=== PATIENT | female | born 1935 | race Caucasian/White ===

== ENCOUNTER → 2023-05-11 13:24 | Outpatient (REF) | payer MEDICARE, OTHER, SELFPAY ==
[2023-05-11 15:37] LABS: ALT (SGPT) 21 U/L (0-35); AST (SGOT) 37 U/L (14-36); Alkaline Phosphatase 42 U/L (38-126); Blood Urea Nitrogen 20 mg/dl (7-17); Calcium 9.1 mg/dl (8.4-10.2); Carbon Dioxide 27 mmol/L (22-30); Chloride 106 mmol/L (98-107); Glucose 150 mg/dl (70-99); Potassium 5.1 mmol/L (3.5-5.1); Sodium 138 mmol/L (135-145); Total Bilirubin 0.6 mg/dl (0.2-1.3); Total Protein 6.9 g/dl (6.3-8.2); eGFR > 60.00
[2023-05-11 16:06] LABS: Vitamin D, 25-OH*** 98.4 ng/mL (30-80)
== END ==
LOC: HWRAD 13:24
PROVIDERS: ATTENDING PHYSICIAN Internal Medicine Rheumatology; FAMILY PHYSICIAN Internal Medicine Geriatric Medicine
DX: M81.0 Age-related osteoporosis without current pathological fracture (principal); E55.9 Vitamin D deficiency, unspecified
CPT/HCPCS: 36415; 77080; 80053; 82306

== ENCOUNTER → 2023-06-13 09:37 | Outpatient (REF) | payer MEDICARE, OTHER, SELFPAY ==
[2023-06-13 12:00] LABS: % Basophils 1.1 % (0-2); % Immature Granulocytes 0.4 % (0-0.5); % Lymphocytes 21.4 % (20.5-51.1); % Monocytes 7.6 % (1.7-9.3); % Neutrophils 65.5 % (42.2-75.2); Absolute Basophils 0.1 10^3/uL (0-0.2); Absolute Eosinophils 0.3 10^3/uL (0-0.7); Absolute Lymphocytes 1.8 10^3/uL (1.2-3.4); Absolute Monocytes 0.6 10^3/uL (0.1-0.6); Absolute Neutrophils 5.4 10^3/uL (1.4-6.5); Hematocrit 39.4 % (37.0-47.0); Hemoglobin 13.4 g/dL (12.0-16.0); Mean Corpuscular Hgb 32.8 pg (27.0-31.0); Mean Corpuscular Volume 96.3 fL (81.0-99.0); Mean Platelet Volume 9.9 fL (7.4-10.4); Nucleated Red Blood Cells % 0 %; Platelet Count 268 10^3/uL (130-400); Red Blood Cell Count 4.09 10^6/uL (4.20-5.40); Red Cell Dist. Width 12.8 % (11.5-14.5); White Blood Cell Count 8.3 10^3/uL (4.8-10.8)
[2023-06-13 12:16] LABS: ALT (SGPT) 22 U/L (0-35); AST (SGOT) 36 U/L (14-36); Albumin 4.3 g/dl (3.5-5.0); Alkaline Phosphatase 34 U/L (38-126); Blood Urea Nitrogen 23 mg/dl (7-17); Carbon Dioxide 29 mmol/L (22-30); Chloride 103 mmol/L (98-107); Glucose 94 mg/dl (70-99); HDL Cholesterol 56 mg/dl; Iron 146 ug/dl (37-170); LDL Cholesterol, Calculated 57 mg/dl; Potassium 5.5 mmol/L (3.5-5.1); Sodium 140 mmol/L (135-145); Total Bilirubin 0.7 mg/dl (0.2-1.3); Total Cholesterol 135 mg/dl (50-199); Total Protein 7.2 g/dl (6.3-8.2); Triglyceride 111 mg/dl (10-149); Very Low Density Lipoprotein 22 mg/dl (0-30); eGFR > 60.00
[2023-06-13 12:26] LABS: Percent Saturation 41 % (20-50); Total Iron Binding Capacity 353 ug/dl (265-497)
[2023-06-13 12:28] LABS: Free T4 1.26 ng/dl (0.78-2.19); Vitamin D, 25-OH*** 96.2 ng/mL (30-80)
[2023-06-13 12:42] LABS: TSH 3.41 uIU/ml (0.47-4.68)
[2023-06-13 12:46] LABS: Ferritin 57.2 ng/ml (11.1-264.0)
== END ==
LOC: HWLAB 09:37
PROVIDERS: ATTENDING PHYSICIAN Internal Medicine Geriatric Medicine
DX: Z09 Encounter for follow-up examination after completed treatment for conditions other than malignant neoplasm (principal); R06.00 Dyspnea, unspecified; J44.9 Chronic obstructive pulmonary disease, unspecified; E03.8 Other specified hypothyroidism; Z87.891 Personal history of nicotine dependence; E55.9 Vitamin D deficiency, unspecified; M81.0 Age-related osteoporosis without current pathological fracture; E61.1 Iron deficiency; J30.2 Other seasonal allergic rhinitis; Z91.81 History of falling; E78.2 Mixed hyperlipidemia; Z13.89 Encounter for screening for other disorder; M25.552 Pain in left hip; E87.5 Hyperkalemia; F90.9 Attention-deficit hyperactivity disorder, unspecified type; G44.211 Episodic tension-type headache, intractable
CPT/HCPCS: 36415; 80053; 80061; 82306; 82728; 83540; 83550; 84439; 84443; 85025

== ENCOUNTER → 2023-07-10 10:43 | Outpatient (REF) | payer MEDICARE, OTHER, SELFPAY ==
[2023-07-10 13:56] LABS: Blood Urea Nitrogen 19 mg/dl (7-17); Calcium 9.5 mg/dl (8.4-10.2); Carbon Dioxide 26 mmol/L (22-30); Chloride 105 mmol/L (98-107); Glucose 89 mg/dl (70-99); Potassium 5.9 mmol/L (3.5-5.1); Sodium 136 mmol/L (135-145); eGFR > 60.00
[2023-07-10 14:30] LABS: Vitamin D, 25-OH*** 66.4 ng/mL (30-80)
== END ==
LOC: HWLAB 10:43
PROVIDERS: ATTENDING PHYSICIAN Internal Medicine Geriatric Medicine
DX: E67.3 Hypervitaminosis D (principal)
CPT/HCPCS: 36415; 80048; 82306

== ENCOUNTER → 2023-12-18 10:33 | Outpatient (REF) | payer MEDICARE, OTHER, SELFPAY ==
[2023-12-18 12:23] LABS: Urine Albumin Trace (Neg - Trace); Urine Bilirubin Negative (Negative); Urine Character Slightly Cloudy (Clear); Urine Color Yellow; Urine Glucose Negative (Negative); Urine Ketone Negative (Negative); Urine Leukocyte 2+ (Negative); Urine Nitrite Negative (Negative); Urine Occult Blood 1+ (Negative); Urine Urobilinogen Negative (Neg - 1+)
[2023-12-18 12:25] LABS: % Eosinophils 3.1 % (0-6); % Immature Granulocytes 0.4 % (0-0.5); % Lymphocytes 21.2 % (20.5-51.1); % Monocytes 6.4 % (1.7-9.3); % Neutrophils 67.9 % (42.2-75.2); Absolute Basophils 0.1 10^3/uL (0-0.2); Absolute Eosinophils 0.3 10^3/uL (0-0.7); Absolute Lymphocytes 2.3 10^3/uL (1.2-3.4); Absolute Monocytes 0.7 10^3/uL (0.1-0.6); Absolute Neutrophils 7.3 10^3/uL (1.4-6.5); Hematocrit 42.4 % (37.0-47.0); Hemoglobin 14.2 g/dL (12.0-16.0); Mean Corp Hgb Conc. 33.5 g/dL (33.0-37.0); Mean Corpuscular Hgb 32.9 pg (27.0-31.0); Mean Corpuscular Volume 98.4 fL (81.0-99.0); Mean Platelet Volume 9.6 fL (7.4-10.4); Nucleated Red Blood Cells % 0 %; Platelet Count 294 10^3/uL (130-400); Red Blood Cell Count 4.31 10^6/uL (4.20-5.40); Red Cell Dist. Width 12.6 % (11.5-14.5); White Blood Cell Count 10.8 10^3/uL (4.8-10.8)
[2023-12-18 12:41] LABS: ALT (SGPT) 21 U/L (0-35); AST (SGOT) 39 U/L (14-36); Albumin 4.5 g/dl (3.5-5.0); Alkaline Phosphatase 44 U/L (38-126); Blood Urea Nitrogen 21 mg/dl (7-17); Calcium 10.1 mg/dl (8.4-10.2); Carbon Dioxide 25 mmol/L (22-30); Chloride 102 mmol/L (98-107); Glucose 98 mg/dl (70-99); HDL Cholesterol 64 mg/dl; LDL Cholesterol, Calculated 74 mg/dl; Potassium 5.6 mmol/L (3.5-5.1); Sodium 139 mmol/L (135-145); Total Bilirubin 0.8 mg/dl (0.2-1.3); Total Cholesterol 162 mg/dl (50-199); Total Protein 7.2 g/dl (6.3-8.2); Triglyceride 123 mg/dl (10-149); Urine Bacteria Moderate (Negative); Urine White Cell 50-60 /HPF (0-5); Very Low Density Lipoprotein 24 mg/dl (0-30); eGFR > 60.00
[2023-12-18 12:52] LABS: Free T4 1.28 ng/dl (0.78-2.19); Vitamin D, 25-OH*** 68.1 ng/mL (30-80)
[2023-12-18 13:06] LABS: TSH 0.26 uIU/ml (0.47-4.68)
== END ==
LOC: HWLAB 10:33
PROVIDERS: ATTENDING PHYSICIAN Internal Medicine Geriatric Medicine
DX: Z79.899 Other long term (current) drug therapy (principal); R82.90 Unspecified abnormal findings in urine; R79.9 Abnormal finding of blood chemistry, unspecified; E87.5 Hyperkalemia; R79.89 Other specified abnormal findings of blood chemistry; R73.01 Impaired fasting glucose; E67.3 Hypervitaminosis D; R74.01 Elevation of levels of liver transaminase levels; M81.0 Age-related osteoporosis without current pathological fracture; E78.2 Mixed hyperlipidemia; E61.1 Iron deficiency
CPT/HCPCS: 36415; 80053; 80061; 81003; 81015; 82306; 84439; 84443; 85025

== ENCOUNTER → 2024-03-18 08:34 | Outpatient (REF) | payer MEDICARE, OTHER, SELFPAY ==
[2024-03-18 12:16] LABS: ALT (SGPT) 24 U/L (0-35); AST (SGOT) 38 U/L (14-36); Albumin 4.4 g/dl (3.5-5.0); Alkaline Phosphatase 33 U/L (38-126); Blood Urea Nitrogen 14 mg/dl (7-17); Calcium 9.6 mg/dl (8.4-10.2); Carbon Dioxide 27 mmol/L (22-30); Chloride 104 mmol/L (98-107); Glucose 104 mg/dl (70-99); Sodium 141 mmol/L (135-145); Total Bilirubin 0.7 mg/dl (0.2-1.3); Total Protein 7.3 g/dl (6.3-8.2); eGFR > 60.00
== END ==
LOC: HWLAB 08:34
PROVIDERS: ATTENDING PHYSICIAN Internal Medicine Rheumatology; FAMILY PHYSICIAN Internal Medicine Geriatric Medicine
DX: M81.0 Age-related osteoporosis without current pathological fracture (principal)
CPT/HCPCS: 36415; 80053

== ENCOUNTER 2024-03-26 10:09 | Emergency (ER) | payer MEDICARE, OTHER, SELFPAY ==
[2024-03-26 10:13] VITALS: BP 169/83
--- NOTE | 2024-03-26 11:52 | ED.GENMED ---
History of Present Illness
General
Chief Complaint: Fainting Sensation
Source: patient and family (son)
Time Seen by Provider: 03/26/24 11:33
History of Present Illness
History of Present Illness:
88-year-old female presents to the emergency room complaining of intermittent dizziness. Patient states that at times she feels a bit of a sensation of spinning. Patient did have a fall about 3 days ago. She was seen at an urgent care had some
sutures placed to a laceration over the left thigh. She also was seen by her polystyrene molding machine tender who said there appear to be no ocular injuries. Currently she does not feel dizzy. She is not dizzy with head movement at this time. Patient also does
have a significant history of COPD. She has been told by her pulmonology to use oxygen on an as needed basis which she has resisted to this point. She denies any fever or chills. She denies any change in her cough.
Past History
Past History
ED Past Medical History: COPD and Hypothyroidism
Social History
Tobacco: Former smoker
Phy Exam
Physical Exam
Physical Exam:
General: Awake, Alert, Oriented X3. No acute distress, appears chronically ill with stigmata of COPD
Vitals: unremarkable
Head: Small closed laceration left eyebrow,
Eyes: Pupils equal, abnormal extraocular eye movement right eye which is chronic.
Throat: Airway intact, no exudates
Neck: Trachea midline
Lungs: Clear and equal b/l
Heart: Regular rate, no murmurs
Abd: Soft, Nontender, No pulsatile mass
Neuro: Cranial nerves intact, muscle strength equal bilaterally
Skin: Warm, dry, no rash
Extremities: pulses equal b/l, no edema
Course
Orders/Labs/Results
Orders:
Orders
03/26/24 10:17
EKG [Electrocardiogram (*1)] Urgent
Reason for Study: Fatigue / Weakness
EKG- Treatment ONCE
03/26/24 11:51
CT Head W/o Iv Contrast Urgent
Comment:
Reason For Exam: recent head injury
03/26/24 11:52
CR Chest - 2 Views Urgent
Comment:
Reason For Exam: fall, left chest pain
03/26/24 12:05
Basic Metabolic Panel Urgent
Complete Blood Count/With Diff Urgent
03/26/24 14:03
CT Head Angio W/wo Iv Contrast Urgent
Comment:
Reason For Exam: suspected aneurysm on plain CT
Abnormal Lab Results
03/26/24
12:05
MCV 99.1 H fL
(81.0-99.0)
MCH 32.9 H pg
(27.0-31.0)
Lymphocytes % 19.0 L %
(20.5-51.1)
Potassium 5.3 H mmol/L
(3.5-5.1)
BUN 19 H mg/dl
(7-17)
Glucose 106 H mg/dl
(70-99)
03/26/24 12:05
03/26/24 12:05
Vital Signs
Initial and Last Documented VS:
Initial Vital Signs
Temp Pulse Resp BP Pulse Ox
98.3 F 91 16 169/83 98
03/26/24 10:13 03/26/24 10:13 03/26/24 10:13 03/26/24 10:13 03/26/24 10:13
Last Documented Vital Signs
Temp Pulse Resp BP Pulse Ox
98.3 F 100 25 169/83 92
03/26/24 10:13 03/26/24 13:01 03/26/24 13:01 03/26/24 10:13 03/26/24 13:01
ED Attending Note
-
Portions of this chart may have been created with voice recognition software.� Occasional wrong word or��sound alike� substitutions may have occurred due to the inherent limitations of voice recognition software.
Discharge Plan
Departure
Patient Disposition: Home (Routine Discharge)
Date of Disposition: 03/26/24
Time of Disposition: 16:38
Patient with high blood pressure during this ER visit?: Yes
Discharge Problem:
Dizziness
Instructions: Dizziness, BLOOD PRESSURE
Prescriptions:
No Action
atorvastatin [Lipitor] 20 mg Tablet
20 mg PO HS
brinzolamide 1 % Drops,Suspension
1 drp BOTH EYES BID
therapeutic multivitamin Tablet
1 tab PO DAILY
calcium carbonate 500 mg calcium (1,250 mg) Tablet
500 mg PO DAILY
ferrous sulfate 325 mg (65 mg iron) Tablet
325 mg PO DAILY
levothyroxine [Synthroid] 125 mcg Tablet
125 mcg PO DAILY@07
montelukast [Singulair] 10 mg Tablet
10 mg PO HS
albuterol sulfate [ProAir HFA] 90 mcg/actuation Hfa Aerosol Inhaler
2 puff INHALATION R [id number] PRN (Reason: sob)
fluticasone propionate 50 mcg/actuation [place],Suspension
2 spray INTRANASAL DAILY
sertraline 50 mg Tablet
50 mg PO DAILY
cholecalciferol (vitamin D3) [Vitamin D3] 25 mcg (1,000 unit) Tablet
25 mcg PO DAILY
Prolia 60 mg/mL Syringe
60 mg SC [id number]
Lumigan 0.01 % Drops
1 drp BOTH EYES QPM
coQ10 (ubiquinol) 100 mg Capsule
100 mg PO DAILY
Trelegy Ellipta 100-62.5-25 mcg Blister With Device
1 inh INHALATION R DAILY
azithromycin 250 mg Tablet
250 mg PO DAILY Qty: 3 0RF
sulfamethoxazole-trimethoprim [Bactrim DS] 800-160 mg tablet
1 tab PO Q12H Qty: 14 0RF
prednisone 10 mg tablet
10 mg PO DIRECTED Qty: 30 0RF
Rx Instructions:
4 tabs daily for 3 days, then 3 tabs x 3 days, then 2 tabs x 3 days, then 1 daily x 3 days
Referrals:
Dawson Caruso MD [Family Provider] -
Activity Restrictions/Additional Instructions:
I believe your dizziness is related to your recent head injury. Increase your fluid intake. You can take meclizine (which you can get over the counter) every 8 hours as needed for the symptoms. 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 I discussed this
with neurosurgery at [facility]. They recommend that you call the office for an appointment. Follow up with your primary care provider as well.
Interventions
Interventions:
*Risk Screen - Suicide Last Done: 03/26/24 10:13
*General Assessment Last Done: 03/26/24 10:13
*Neglect/Abuse Screening Last Done: 03/26/24 10:13
*ED COVID-19 Vaccine History Last Done: 03/26/24 12:13
ED- Cardiac Assessment Last Done: 03/26/24 12:13
ED- Neurological Assessment Last Done: 03/26/24 12:14
Discharge Date and Time
Print Language: SYRIAN
[2024-03-26 11:56] VITALS: BMI 19.4
[2024-03-26 12:17] LABS: % Basophils 0.7 % (0-2); % Eosinophils 0.8 % (0-6); % Immature Granulocytes 0.2 % (0-0.5); % Monocytes 6.5 % (1.7-9.3); % Neutrophils 72.8 % (42.2-75.2); Absolute Basophils 0.1 10^3/uL (0-0.2); Absolute Eosinophils 0.1 10^3/uL (0-0.7); Absolute Lymphocytes 1.6 10^3/uL (1.2-3.4); Absolute Monocytes 0.6 10^3/uL (0.1-0.6); Absolute Neutrophils 6.3 10^3/uL (1.4-6.5); Hematocrit 42.2 % (37.0-47.0); Mean Corp Hgb Conc. 33.2 g/dL (33.0-37.0); Mean Corpuscular Hgb 32.9 pg (27.0-31.0); Mean Corpuscular Volume 99.1 fL (81.0-99.0); Mean Platelet Volume 9.3 fL (7.4-10.4); Nucleated Red Blood Cells % 0 %; Platelet Count 297 10^3/uL (130-400); Red Blood Cell Count 4.26 10^6/uL (4.20-5.40); Red Cell Dist. Width 12.3 % (11.5-14.5); White Blood Cell Count 8.7 10^3/uL (4.8-10.8)
[2024-03-26 12:33] LABS: Blood Urea Nitrogen 19 mg/dl (7-17); Carbon Dioxide 27 mmol/L (22-30); Chloride 104 mmol/L (98-107); Estimated Creatinine Clearance 35 ml/min; Glucose 106 mg/dl (70-99); Potassium 5.3 mmol/L (3.5-5.1); Sodium 142 mmol/L (135-145); eGFR > 60.00
[2024-03-26 16:54] VITALS: BP 155/85
[2024-03-26 18:03] VITALS: BP 155/85
== END 2024-03-26 18:05 | disposition home or self-care (01) ==
LOC: EMR 10:09
PROVIDERS: EMERGENCY PHYSICIAN Emergency Medicine; FAMILY PHYSICIAN Internal Medicine Geriatric Medicine
DX: R42 Dizziness and giddiness (principal); S01.112A Laceration without foreign body of left eyelid and periocular area, initial encounter; W19.XXXA Unspecified fall, initial encounter; R03.0 Elevated blood-pressure reading, without diagnosis of hypertension; J44.9 Chronic obstructive pulmonary disease, unspecified; E03.9 Hypothyroidism, unspecified; Z87.891 Personal history of nicotine dependence
CPT/HCPCS: 99285; 70450; 70496; 71046; 80048; 85025; 93005; Q9967

== ENCOUNTER → 2024-06-17 10:48 | Outpatient (REF) | payer MEDICARE, OTHER, SELFPAY ==
[2024-06-17 12:26] LABS: % Basophils 0.8 % (0-2); % Eosinophils 1.4 % (0-6); % Immature Granulocytes 0.4 % (0-0.5); % Lymphocytes 17.1 % (20.5-51.1); % Monocytes 6.3 % (1.7-9.3); Absolute Basophils 0.1 10^3/uL (0-0.2); Absolute Eosinophils 0.1 10^3/uL (0-0.7); Absolute Lymphocytes 1.6 10^3/uL (1.2-3.4); Absolute Monocytes 0.6 10^3/uL (0.1-0.6); Absolute Neutrophils 6.7 10^3/uL (1.4-6.5); Hematocrit 40.7 % (37.0-47.0); Mean Corp Hgb Conc. 31.9 g/dL (33.0-37.0); Mean Corpuscular Hgb 31.9 pg (27.0-31.0); Mean Corpuscular Volume 99.8 fL (81.0-99.0); Mean Platelet Volume 9.9 fL (7.4-10.4); Nucleated Red Blood Cells % 0 %; Platelet Count 295 10^3/uL (130-400); Red Blood Cell Count 4.08 10^6/uL (4.20-5.40); Red Cell Dist. Width 13.4 % (11.5-14.5); White Blood Cell Count 9.1 10^3/uL (4.8-10.8)
[2024-06-17 12:38] LABS: Urine Albumin 1+ (Neg - Trace); Urine Bilirubin Negative (Negative); Urine Character Clear (Clear); Urine Color Yellow; Urine Glucose Negative (Negative); Urine Ketone Negative (Negative); Urine Leukocyte 3+ (Negative); Urine Nitrite Negative (Negative); Urine Occult Blood Negative (Negative); Urine Urobilinogen 1+ (Neg - 1+)
[2024-06-17 12:56] LABS: Urine Bacteria Few (Negative)
[2024-06-17 13:07] LABS: ALT (SGPT) 22 U/L (0-35); AST (SGOT) 34 U/L (14-36); Albumin 4.3 g/dl (3.5-5.0); Alkaline Phosphatase 48 U/L (38-126); Blood Urea Nitrogen 19 mg/dl (7-17); Calcium 10.2 mg/dl (8.4-10.2); Carbon Dioxide 29 mmol/L (22-30); Chloride 103 mmol/L (98-107); Glucose 108 mg/dl (70-99); HDL Cholesterol 75 mg/dl; LDL Cholesterol, Calculated 73 mg/dl; Potassium 5.7 mmol/L (3.5-5.1); Sodium 141 mmol/L (135-145); Total Bilirubin 0.6 mg/dl (0.2-1.3); Total Cholesterol 163 mg/dl (50-199); Total Protein 7.3 g/dl (6.3-8.2); Triglyceride 76 mg/dl (10-149); Very Low Density Lipoprotein 15 mg/dl (0-30); eGFR > 60.00
[2024-06-17 13:16] LABS: Free T4 1.07 ng/dl (0.78-2.19); Vitamin D, 25-OH*** 58.7 ng/mL (30-80)
[2024-06-17 13:29] LABS: TSH 1.59 uIU/ml (0.47-4.68)
== END ==
LOC: HWLAB 10:48
PROVIDERS: ATTENDING PHYSICIAN Internal Medicine Geriatric Medicine; REFERRING PHYSICIAN Internal Medicine Critical Care Medicine
DX: J44.9 Chronic obstructive pulmonary disease, unspecified (principal); R06.00 Dyspnea, unspecified; E03.8 Other specified hypothyroidism; E55.9 Vitamin D deficiency, unspecified; M81.0 Age-related osteoporosis without current pathological fracture; E61.1 Iron deficiency; J30.2 Other seasonal allergic rhinitis; Z91.81 History of falling; E78.2 Mixed hyperlipidemia; Z13.89 Encounter for screening for other disorder; M25.552 Pain in left hip; E87.5 Hyperkalemia
CPT/HCPCS: 36415; 80053; 80061; 81003; 81015; 82306; 84439; 84443; 85025

== ENCOUNTER → 2024-08-14 10:33 | Outpatient (REF) | payer MEDICARE, OTHER, SELFPAY ==
[2024-08-14 13:04] LABS: ALT (SGPT) 26 U/L (0-35); AST (SGOT) 36 U/L (14-36); Alkaline Phosphatase 40 U/L (38-126); Blood Urea Nitrogen 20 mg/dl (7-17); Calcium 10.2 mg/dl (8.4-10.2); Carbon Dioxide 32 mmol/L (22-30); Chloride 106 mmol/L (98-107); Glucose 105 mg/dl (70-99); Sodium 144 mmol/L (135-145); Total Bilirubin 0.6 mg/dl (0.2-1.3); Total Protein 7.1 g/dl (6.3-8.2); eGFR > 60.00
[2024-08-14 13:13] LABS: Vitamin D, 25-OH*** 60.2 ng/mL (30-80)
== END ==
LOC: HWLAB 10:33
PROVIDERS: ATTENDING PHYSICIAN Internal Medicine Rheumatology; FAMILY PHYSICIAN Internal Medicine Geriatric Medicine
DX: E55.9 Vitamin D deficiency, unspecified (principal); M81.0 Age-related osteoporosis without current pathological fracture
CPT/HCPCS: 36415; 80053; 82306

== ENCOUNTER → 2024-08-23 10:07 | Outpatient (REF) | payer MEDICARE, OTHER, SELFPAY ==
[2024-08-23 15:48] LABS: ALT (SGPT) 23 U/L (0-35); AST (SGOT) 35 U/L (14-36); Albumin 4.5 g/dl (3.5-5.0); Alkaline Phosphatase 36 U/L (38-126); Blood Urea Nitrogen 30 mg/dl (7-17); Calcium 9.7 mg/dl (8.4-10.2); Carbon Dioxide 25 mmol/L (22-30); Chloride 108 mmol/L (98-107); Glucose 94 mg/dl (70-99); Potassium 5.2 mmol/L (3.5-5.1); Sodium 142 mmol/L (135-145); Total Bilirubin 0.6 mg/dl (0.2-1.3); Total Protein 7.4 g/dl (6.3-8.2); eGFR 54.19
== END ==
LOC: HWLAB 10:07
PROVIDERS: ATTENDING PHYSICIAN Physician Assistant; FAMILY PHYSICIAN Internal Medicine Geriatric Medicine
DX: E87.5 Hyperkalemia (principal); M81.0 Age-related osteoporosis without current pathological fracture
CPT/HCPCS: 36415; 80053